=== PATIENT | male | born 1975 | race Caucasian/White ===

== ENCOUNTER 2018-10-22 23:13 | Emergency (ER) | payer OTHER ==
--- NOTE | 2018-10-22 23:48 | ED PDOC ---
HPI: Psych/Substance Abuse Time Seen by Provider: 10/22/18 23:27 Chief Complaint (Nursing): Alcohol Ingestion Chief Complaint (Provider): Alcohol Ingestion ED Caveat: Intoxicated History Per: Patient History/Exam Limitations: intoxication Current Symptoms Are (Timing): Still Present Additional Complaint(s): Deejay Perrin is a 43 year old male with no past medical history, who was brought to the emergency department for public intoxication. Patient was found on the streets of [place]. At this time, patient is a poor historian due to his intoxication and it is unclear if he has any physical complaints. He denies any reports of trauma. PMD: no provider Past Medical History Reviewed: Historical Data, Nursing Documentation, Vital Signs, Unable To Obtain Vital Signs: Last Vital Signs Temp 97.1 F L 10/22/18 23:16 Pulse 100 H 10/22/18 23:16 Resp 16 10/22/18 23:16 BP 147/93 H 10/22/18 23:16 Pulse Ox 100 10/22/18 23:16 - Medical History PMH: Denies: Diabetes, Hepatitis, HIV, HTN, Chronic Kidney Disease, Seizures, Sexually Transmitted Disease - Surgical History Surgical History: No Surg Hx - Family History Family History: States: Unknown Family Hx - Immunization History Hx Tetanus Toxoid Vaccination: No Hx Influenza Vaccination: No Hx Pneumococcal Vaccination: No - Home Medications Home Medications: Ambulatory Orders Medication Instructions Recorded No Known Home Med 03/26/17 - Allergies Allergies/Adverse Reactions: Allergies Allergy/AdvReac Type Severity Reaction Status Date / Time No Known Allergies Allergy Verified 10/22/18 23:16 Review of Systems Review Of Systems: ROS cannot be obtained secondary to pt's inabilty to answer questions. Constitutional: Positive for: Other (intoxication) Physical Exam - Reviewed Nursing Documentation Reviewed: Yes Vital Signs Reviewed: Yes - Physical Exam Appears: Positive for: No Acute Distress Head Exam: Positive for: ATRAUMATIC Eye Exam: Positive for: Normal appearance, EOMI, PERRL Cardiovascular/Chest: Positive for: Regular Rate, Rhythm Respiratory: Negative for: Respiratory Distress Extremity: Positive for: Normal ROM Neurologic/Psych: Positive for: Alert (awake), Gait (unsteady), Other (confused; slurred speech). Negative for: Oriented - ECG O2 Sat by Pulse Oximetry: 100 (RA) Pulse Ox Interpretation: Normal Medical Decision Making Medical Decision Making: Time: 2329 Impression: alcohol intoxication Plan: --monitor for clinical sobriety 0700 Patient care is endorsed to Dr. Araujo, pending sobriety. ----- Scribe Attestation: Documented by Alberto Whitmore, acting as a scribe for Mindi Ferrara MD. Provider Scribe Attestation: All medical record entries made by the Scribe were at my direction and personally dictated by me. I have reviewed the chart and agree that the record accurately reflects my personal performance of the history, physical exam, medical decision making, and the department course for this patient. I have also personally directed, reviewed, and agree with the discharge instructions and disposition. Disposition - Clinical Impression Clinical Impression: Alcohol abuse with intoxication - Patient ED Disposition Is Patient to be Admitted: Transfer of Care - Disposition Disposition: Transfer of Care Disposition Time: 07:00 Condition: STABLE Instructions: Alcohol Use - When Is Drinking a Problem? Forms: [facility] ED School/Work Excuse Print Language: BRAZILIAN Patient Signed Over To: Zuleika Araujo
--- NOTE | 2018-10-23 07:35 | ED PDOC ---
- ECG O2 Sat by Pulse Oximetry: 100 (RA) Pulse Ox Interpretation: Normal Medical Decision Making Medical Decision Making: Time: 0700 Patient care endorsed by Dr. Ferrara to Dr. Araujo pending sobriety Scribe Attestation: Documented by Purvi Jamil, acting as a scribe for Zuleika Araujo MD. Provider Scribe Attestation: All medical record entries made by the Scribe were at my direction and personally dictated by me. I have reviewed the chart and agree that the record accurately reflects my personal performance of the history, physical exam, medical decision making, and the department course for this patient. I have also personally directed, reviewed, and agree with the discharge instructions and disposition. Disposition Doctor Will See Patient In The: Office Counseled Patient/Family Regarding: Diagnosis, Need For Followup - Clinical Impression Clinical Impression: Alcohol abuse with intoxication - POA Present On Arrival: None - Disposition Disposition: Routine/Home Disposition Time: 09:30 Instructions: Alcohol Use - When Is Drinking a Problem? Forms: [employer] (Danish), [facility] ED School/Work Excuse Print Language: CAMBODIAN
[2018-10-23 10:03] VITALS: BP 128/66; PULSE 88; RESP 17; TEMP 98.1
[2018-10-23 13:29] VITALS: O2SAT 100
== END 2018-10-23 09:47 | disposition home or self-care (01) ==
LOC: H.ER 23:13
DX: F10.129 Alcohol abuse with intoxication, unspecified (principal)

== ENCOUNTER 2018-10-23 17:55 | Emergency (ER) | payer SELFPAY ==
--- NOTE | 2018-10-23 18:21 | ED PDOC ---
HPI: Psych/Substance Abuse Time Seen by Provider: 10/23/18 18:05 Chief Complaint (Nursing): Alcohol Ingestion Chief Complaint (Provider): Alcohol Ingestion History Per: Patient History/Exam Limitations: no limitations Severity: Moderate Additional Complaint(s): 43 year old male with no pertinent past medical history is brought into the ED by EMS for alcohol intoxication. Patient was found lying down on the floor, and was assumed to be intoxicated. Patient is not answering questions, but int ermittently shakes his head yes or no. PMD: None provided. Past Medical History Reviewed: Historical Data, Nursing Documentation, Vital Signs FUNMILAYO Report Viewed: Yes - Medical History PMH: No Chronic Diseases Denies: Diabetes, Hepatitis, HIV, HTN, Chronic Kidney Disease, Seizures, Sexually Transmitted Disease - Surgical History Surgical History: No Surg Hx - Family History Family History: States: No Known Family Hx - Social History Current smoker - smoking cessation education provided: No Alcohol: > 2 Drinks/Day Drugs: Denies - Immunization History Hx Tetanus Toxoid Vaccination: No Hx Influenza Vaccination: No Hx Pneumococcal Vaccination: No - Home Medications Home Medications: Ambulatory Orders Medication Instructions Recorded RX: No Known Home Med 03/26/17 - Allergies Allergies/Adverse Reactions: Allergies Allergy/AdvReac Type Severity Reaction Status Date / Time No Known Allergies Allergy Verified 10/22/18 23:16 Review of Systems ROS Statement: Except As Marked, All Systems Reviewed And Found Negative Physical Exam - Reviewed Nursing Documentation Reviewed: Yes Vital Signs Reviewed: Yes - Physical Exam Appears: Positive for: Well, Non-toxic, No Acute Distress Head Exam: Positive for: ATRAUMATIC, NORMOCEPHALIC. Negative for: NORMAL INSPECTION (swelling noted to left frontal region of head) Skin: Positive for: Normal Color, Warm, Dry Eye Exam: Positive for: Normal appearance, EOMI, PERRL Cardiovascular/Chest: Positive for: Regular Rate, Rhythm Respiratory: Positive for: Normal Breath Sounds Extremity: Positive for: Normal ROM (moving all extremities) Neurologic/Psych: Positive for: Alert, Oriented (3x) - Laboratory Results Result Diagrams: 10/23/18 20:40 10/23/18 20:40 - CT Scan/US CT cervical spine Other Rad Studies (CT/US): Read By Radiologist, Radiology Report Reviewed (see MDM note) CT head Other Rad Studies (CT/US): Read By Radiologist, Radiology Report Reviewed (see MDM) - Progress ED Course And Treament: Banana bag 1 liter 500 ml per hour x 1 liter Medical Decision Making Medical Decision Makin:05 Initial impression: 43 year old male with alcohol intoxication Initial plan: * CT cervical spine w/o contrast * CT head w/o contrast * alcohol serum * accucheck * reevaluation 19:20 CT head read and reviewed by radiologist FINDINGS: BRAIN No acute intraparenchymal hemorrhage. No mass lesion. No CT evidence for acute territorial infarct. No midline shift or extra-axial collections. VENTRICLES: No hydrocephalus. ORBITS: The orbits are unremarkable. SINUSES AND MASTOIDS: The paranasal sinuses and mastoid air cells are clear. BONES: No fracture. SOFT TISSUES: Unremarkable. IMPRESSION: No acute intracranial abnormality. 19:23 CT cervical spine read and reviewed by radiologist FINDINGS: ALIGNMENT: Bony alignment is anatomic. DEGENERATIVE CHANGES: No significant canal stenosis or neural foraminal narrowing evident. SOFT TISSUES: The prevertebral soft tissues are within normal limits. BONES: No acute fracture or aggressive appearing osseous lesion. IMPRESSION: No acute cervical spine abnormality. --------- -------- Scribe Attestation: Documented byVita Silva, acting as a scribe for Hilario Solorzano PA-C. Provider Scribe Attestation: All medical record entries made by the Scribe were at my direction and personally dictated by me. I have reviewed the chart and agree that the record accurately reflects my personal performance of the history, physical exam, medical decision making, and the department course for this patient. I have also personally directed, reviewed, and agree with the discharge instructions and d isposition. Disposition - Clinical Impression Clinical Impression: Alcohol poisoning - Patient ED Disposition Is Patient to be Admitted: Transfer of Care - Disposition Disposition: Transfer of Care Disposition Time: 00:00 Condition: FAIR Instructions: Alcohol Poisoning (DC) Patient Signed Over To: Mireya Bosch
[2018-10-23 20:27] VITALS: TEMP 98.1
[2018-10-23] MEDS ORDERED: Multivitamin (MVI) 10 ML, Thiamine 100 MG, Folic Acid 1 MG in Sodium Chloride 0.9% 1,00... IV ONE (20:31)
[2018-10-23] MEDS ORDERED: Sodium Chloride 0.9% 1,000 ML IV STA (20:31)
[2018-10-23 21:26] LABS: BASO % 0.4 % (0.0-2.0); EOS # 0.1 K/uL (0.0-0.7); EOS % 1.5 % (0.0-4.0); LYMPH # 1.7 K/uL (1.0-4.3); LYMPH % 26.4 % (20.0-40.0); MEAN CELL VOLUME 96.9 fl (80.0-94.0); MEAN CORPUSCULAR HEMOGLOBIN 32.3 pg (27.0-31.0); MEAN CORPUSCULAR HGB CONC 33.3 g/dL (33.0-37.0); MEAN PLATELET VOLUME 8.3 fl (7.2-11.7); MONO # 0.5 K/uL (0.0-0.8); MONO % 7.7 % (0.0-10.0); NRBC % 0.1 % (0.0-0.0); RBC 4.32 Mil/uL (4.40-5.90); RED CELL DISTRIBUTION WIDTH 14.5 % (11.5-14.5); WHITE BLOOD COUNT 6.3 K/uL (4.8-10.8)
[2018-10-23 21:42] LABS: ALB/GLOB RATIO 1.1 (1.0-2.1); ALBUMIN 4.2 g/dL (3.5-5.0); ALT/SGPT 151 U/L (21-72); AST/SGOT 167 U/L (17-59); BLOOD UREA NITROGEN 13 mg/dl (9-20); CALCIUM 8.3 mg/dL (8.4-10.2); GFR NON-AFRICAN AMERICAN > 60
[2018-10-23 23:46] VITALS: O2SAT 94
--- NOTE | 2018-10-24 00:12 | ED PDOC ---
- Laboratory Results Result Diagrams: 10/23/18 20:40 10/23/18 20:40 Lab Results: Total Bilirubin 0.2 mg/dl (0.2-1.3) 10/23/18 20:40 AST 167 U/L (17-59) H 10/23/18 20:40 ALT 151 U/L (21-72) H 10/23/18 20:40 Alkaline Phosphatase 81 U/L (38-126) 10/23/18 20:40 Total Protein 8.0 G/DL (6.3-8.2) 10/23/18 20:40 Albumin 4.2 g/dL (3.5-5.0) 10/23/18 20:40 Globulin 3.9 gm/dL (2.2-3.9) 10/23/18 20:40 Albumin/Globulin Ratio 1.1 (1.0-2.1) 10/23/18 20:40 - ECG O2 Sat by Pulse Oximetry: 94 Medical Decision Making Medical Decision Making: Patient endorsed to me by LUANA Solorzano pending clinical sobriety 4:57am: pt re-evaluated, speaking coherently, denies SI/HI, auditory or visual hallucinations. Walking with steady gait. Stable for d/c. Disposition - Clinical Impression Clinical Impression: Alcohol poisoning - POA Present On Arrival: None - Disposition Disposition: Routine/Home Disposition Time: 05:00 Condition: STABLE Instructions: Alcohol Poisoning (DC)
[2018-10-24 04:29] VITALS: BP 129/72; PULSE 110; RESP 20
--- NOTE | 2018-10-24 08:42 | CT ---
Date of service: 10/23/2018 PROCEDURE: CT HEAD WITHOUT CONTRAST. HISTORY: head injury COMPARISON: None available. TECHNIQUE: Axial computed tomography images were obtained through the head/brain without intravenous contrast. Radiation dose: Total exam DLP = 719.69 mGy-cm. This CT exam was performed using one or more of the following dose reduction techniques: Automated exposure control, adjustment of the mA and/or kV according to patient size, and/or use of iterative reconstruction technique. FINDINGS: HEMORRHAGE: No intracranial hemorrhage. BRAIN: No mass effect or edema. No atrophy or chronic microvascular ischemic changes. VENTRICLES: Unremarkable. No hydrocephalus. CALVARIUM: Unremarkable. PARANASAL SINUSES: Mild mucosal thickening noted in the right maxillary sinus. MASTOID AIR CELLS: Unremarkable as visualized. No inflammatory changes. OTHER FINDINGS: None. IMPRESSION: No evidence of acute intracranial hemorrhage intracranial collection mass effect or midline shift. Preliminary report contains concordant findings was submitted by [facility] Radiology.
--- NOTE | 2018-10-24 09:31 | CT ---
Date of service: 10/23/2018 PROCEDURE: CT Cervical Spine without contrast HISTORY: fall/head injury COMPARISON: None available. TECHNIQUE: Axial computed tomography images were obtained of the cervical spine without the use of intravenous contrast. Coronal and sagittal reformatted images were created and reviewed. Radiation dose: Total exam DLP = 328.24 mGy-cm. This CT exam was performed using one or more of the following dose reduction techniques: Automated exposure control, adjustment of the mA and/or kV according to patient size, and/or use of iterative reconstruction technique. FINDINGS: VERTEBRAE: No fracture. Normal alignment. No destructive bony lesion. DISCS/SPINAL CANAL/NEURAL FORAMINA: No significant central canal or neural foraminal stenosis. Discs heights are grossly preserved. PARASPINAL SOFT TISSUES: Unremarkable. OTHER FINDINGS: None. IMPRESSION: No evidence of acute displaced fracture or acute traumatic subluxation Preliminary report contains concordant findings was submitted by [facility] Radiology.
== END 2018-10-24 05:10 | disposition home or self-care (01) ==
LOC: H.ER 17:55
DX: F10.129 Alcohol abuse with intoxication, unspecified (principal); S09.90XA Unspecified injury of head, initial encounter; W19.XXXA Unspecified fall, initial encounter; Y92.89 Other specified places as the place of occurrence of the external cause; T51.0X1A Toxic effect of ethanol, accidental (unintentional), initial encounter
CPT/HCPCS: 70450; 72125; 80053; 82948; 83735; 85025; 96360; 96361; 99285; G0480; J3411; J7030

== ENCOUNTER 2018-10-26 06:48 | Emergency (ER) | payer SELFPAY ==
--- NOTE | 2018-10-26 08:01 | ED PDOC ---
HPI: Psych/Substance Abuse Time Seen by Provider: 10/26/18 07:28 Chief Complaint (Nursing): Alcohol Ingestion Chief Complaint (Provider): Alcohol Ingestion ED Caveat: Intoxicated History Per: EMS History/Exam Limitations: intoxication Onset/Duration Of Symptoms: Hrs Current Symptoms Are (Timing): Still Present Modifying Factor(s): Alcohol Additional Complaint(s): 43 year old male with unknown medical history who was brought to the ED by EMS after being found intoxicated sleeping on the street prior to arrival. Patient is homeless and unable to provide any history due to intoxicated state. Of note, patient was seen in this ED on the and of this month. PMD: none provided Past Medical History Reviewed: Historical Data, Nursing Documentation, Vital Signs, Unable To Obtain Vital Signs: Last Vital Signs Temp 97.8 F 10/26/18 07:02 Pulse 88 10/26/18 07:02 Resp 18 10/26/18 07:02 BP 174/63 H 10/26/18 07:02 Pulse Ox 98 10/26/18 07:02 - Medical History PMH: Denies: Diabetes, Hepatitis, HIV, HTN, Chronic Kidney Disease, Seizures, Sexually Transmitted Disease Other PMH: etoh as per records - Family History Family History: States: Unknown Family Hx - Immunization History Hx Tetanus Toxoid Vaccination: No Hx Influenza Vaccination: No Hx Pneumococcal Vaccination: No - Home Medications Home Medications: Ambulatory Orders Medication Instructions Recorded RX: No Known Home Med 03/26/17 - Allergies Allergies/Adverse Reactions: Allergies Allergy/AdvReac Type Severity Reaction Status Date / Time No Known Allergies Allergy Verified 10/26/18 07:17 Review of Systems ROS Statement: Except As Marked, All Systems Reviewed And Found Negative Review Of Systems: ROS cannot be obtained secondary to pt's inabilty to answer questions. Physical Exam - Reviewed Nursing Documentation Reviewed: Yes Vital Signs Reviewed: Yes - Physical Exam Appears: Positive for: Non-toxic, No Acute Distress Head Exam: Positive for: ATRAUMATIC, NORMAL INSPECTION, NORMOCEPHALIC Skin: Positive for: Normal Color, Warm ENT: Positive for: Normal ENT Inspection Neck: Positive for: Normal Cardiovascular/Chest: Positive for: Regular Rate, Rhythm. Negative for: Murmur Respiratory: Positive for: Normal Breath Sounds. Negative for: Respiratory Distress Gastrointestinal/Abdominal: Positive for: Soft. Negative for: Tenderness Extremity: Positive for: Normal ROM Neurologic/Psych: Positive for: Other (somnolent ). Negative for: Motor/Sensory Deficits - ECG ECG Rhythm: Positive for: Normal QRS, Normal ST Segment, Sinus Tachycardia Rate: 109 O2 Sat by Pulse Oximetry: 98 (RA) Pulse Ox Interpretation: Normal Medical Decision Making Medical Decision Making: Time: 7:53 Plan: intoxicated --Alcohol Serum 9:26 Patient's alcohol level is 444. 12:10 Patient is asleep in ED without distress. 14:57 Patient is now awake alert and oriented x3 in the ED. He has a steady gait and is clinically sober. he denies any sort of trauma or injury and states that he has no medical complaints at this time. no headahce dizziness or trauma. Patient has a pulse of 117 at this time in the ED so an EKG was ordered. 15:30 Repeat pulse was 109, blood pressure was repeated again. patient drank a full putcher of water in the ED. Due to normal EKG and clinical sobriety patient is stable for discharge home as per provider. pt instructied on alchol abuse and need for follow up for detox. Scribe Attestation: Documented by May Carvalho, acting as a scribe for Jerica Ferris MD. Provider Scribe Attestation: All medical record entries made by the Scribe were at my direction and personally dictated by me. I have reviewed the chart and agree that the record accurately reflects my personal performance of the history, physical exam, medical decision making, and the department course for this patient. I have also personally directed, reviewed, and agree with the discharge instructions and disposition. Disposition - Clinical Impression Clinical Impression: Alcohol intoxication - Patient ED Disposition Is Patient to be Admitted: No Counseled Patient/Family Regarding: Diagnosis, Need For Followup - Disposition Referrals: [facility] [Outside] [facility] [Outside] Disposition: Routine/Home Disposition Time: 15:00 Condition: IMPROVED Additional Instructions: follow up with your doctor cut down on your alcohol intake return to the ED with any worsening or concerning symptoms Instructions: Alcohol Abuse and Alcoholism (DC), Effects of Alcohol on Your Health Forms: [employer] (Luxembourgish), [employer] (Lao) Print Language: SOUTH SUDANESE
[2018-10-26 15:10] VITALS: RESP 18
[2018-10-26 15:32] VITALS: BP 143/94; TEMP 98.4
--- NOTE | 2018-10-27 11:57 | CARD ---
APPROVED REPORT Date of service: 10/26/2018 EKG Measurement Heart [id number] <Conclusion> Sinus tachycardia Minimal voltage criteria for LVH, may be normal variant Nonspecific ST and T wave abnormality Abnormal ECG
[2018-10-28 00:03] VITALS: PULSE 109; O2SAT 98
== END 2018-10-26 15:42 | disposition home or self-care (01) ==
LOC: H.ER 06:48
DX: F10.129 Alcohol abuse with intoxication, unspecified (principal); Y90.8 Blood alcohol level of 240 mg/100 ml or more; Z59.0 Homelessness
CPT/HCPCS: 93005; 99284; G0480